=== PATIENT | female | born 1965 | race Caucasian/White ===

== ENCOUNTER → 2018-08-20 | Outpatient (CLI) | payer MEDICARE, OTHER | END | disposition home or self-care (01) | LOC: CFH 15:02 | PROVIDERS: ATTEND Nurse Practitioner Family | DX: M50.323 Other cervical disc degeneration at C6-C7 level (principal); M47.22 Other spondylosis with radiculopathy, cervical region; M51.37 Other intervertebral disc degeneration, lumbosacral region; M48.061 Spinal stenosis, lumbar region without neurogenic claudication; M48.02 Spinal stenosis, cervical region; M25.78 Osteophyte, vertebrae | CPT/HCPCS: 72050; 72110; 72141; 72148 ==

== ENCOUNTER 2020-09-25 17:25 | Emergency (ER) | payer BC, MEDICARE, OTHER ==
[~2020-09-25] VITALS: Ht 154.9 cm; Wt 82.1 kg
--- NOTE | 2020-09-25 17:55 | NUR ---
SAME TRIAGE NOTE. PT HAS HIVES ALL OVER BODY, C/O ITCHING. DENIES THROAT SWELLING OR DIFFICULTY BREATHING. VSS.
[2020-09-25] MEDS ORDERED: DIPHENHYDRAMINE 50 MG/ML, 1ML ONE (18:58)
[2020-09-25] MEDS ORDERED: DEXAMETHASONE 4 MG/ML, 1ML ONE (18:58)
[2020-09-25] MEDS ORDERED: FAMOTIDINE 20 MG TABLET ONE (18:58)
[2020-09-25] MEDS ORDERED: FAMOTIDINE 20 MG TABLET PO/NG ONE (19:00)
[2020-09-25] MEDS ORDERED: DEXAMETHASONE 4 MG/ML, 1ML IM ONE (19:00)
[2020-09-25] MEDS ORDERED: DIPHENHYDRAMINE 50 MG/ML, 1ML IM ONE (19:00)
[2020-09-25 19:07] VITALS: BP 126/77
--- NOTE | 2020-09-25 19:07 | NUR ---
PT MEDICATED PER ORDERS. WILL MONITOR FOR 15MIN BEFORE DISCHARGE.
--- NOTE | 2020-09-25 19:33 | NUR ---
PT STATES SHE'S FEELING A LITTLE BETTER AFTER MEDS, STATES HIVES IMPROVING. D/C INSTRUCTIONS, MEDS & F/U APPT RV'WD WITH PT, SHE VERBALIZES UNDERSTANDING. RX GIVEN X1. PT AMBULATED OUT OF ED WITHOUT DIFFICULTY, STATES SHE LIVES CLOSE AND WILL DRIVE HERSELF HOME.
== END 2020-09-25 19:34 | disposition home or self-care (01) ==
LOC: ED 18:23
DX: L50.0 Allergic urticaria (principal)
CPT/HCPCS: 96372; 99284; J1100; J1200